=== PATIENT | male | born 1970 | race African-American/Black ===

== ENCOUNTER 2021-01-04 13:10 | Inpatient (IN) | payer OTHER ==
[2021-01-04 15:32] VITALS: BMI 26.2
[2021-01-04] MEDS ORDERED: chlordiazePOXIDE HCL 25 MG CAPSULE PO PRN (16:21)
[2021-01-04] MEDS ORDERED: MAG HYDROX/AL HYDROX/SIMETH 30 ML UNIT-DOSE CUP PO PRN (16:21)
[2021-01-04] MEDS ORDERED: ACETAMINOPHEN 325 MG TABLET (FP) PO PRN ×2 (16:21)
[2021-01-04] MEDS ORDERED: BISMUTH SUBSALICYLATE 524 MG/30 ML UD PO PRN (16:21)
[2021-01-04] MEDS ORDERED: ONDANSETRON *ODT* 4 MG TABLET SL PRN (16:21)
[2021-01-04] MEDS ORDERED: MAGNESIUM HYDROX 2400MG/30ML ORAL SUSPENSION 30 ML CUP PO PRN (16:21)
[2021-01-04] MEDS ORDERED: MAGNESIUM CITRATE 300 ML BOTTLE PO PRN (16:21)
[2021-01-04] MEDS ORDERED: MENTHOL/PHENOL 1 EACH UD MM PRN (16:21)
[2021-01-04] MEDS ORDERED: NICOTINE POLACRILEX 2 MG GUM BUC PRN (16:21)
[2021-01-04] MEDS ORDERED: METHOCARBAMOL 500 MG TABLET PO PRN (16:21)
[2021-01-04] MEDS ORDERED: IBUPROFEN 400 MG TABLET (FP) PO PRN (16:21)
[2021-01-04] MEDS: chlordiazePOXIDE HCL 25 MG CAPSULE PO SCH ×2 (18:02→22:31)
[2021-01-04] MEDS: hydrOXYzine PAMOATE 25 MG CAPSULE (FP) PO SCH ×2 (18:02→22:31)
[2021-01-04] MEDS: PRENATAL VITAMINS W/ FOLIC ACID TABLET (FP) PO SCH (18:10)
[2021-01-04] MEDS: NICOTINE 21 MG/24 HOURS TOPICAL PATCH TD SCH (18:10)
[2021-01-04] MEDS: THIAMINE HCL 100 MG TABLET (FP) PO SCH (22:30)
[2021-01-04] MEDS: MELATONIN 5 MG TABLETS PO SCH (22:30)
[2021-01-05] MEDS: chlordiazePOXIDE HCL 25 MG CAPSULE PO SCH ×4 (05:11→22:32)
[2021-01-05] MEDS: hydrOXYzine PAMOATE 25 MG CAPSULE (FP) PO SCH ×5 (05:11→22:31)
[2021-01-05] MEDS: NICOTINE 21 MG/24 HOURS TOPICAL PATCH TD SCH (10:18)
[2021-01-05] MEDS: PRENATAL VITAMINS W/ FOLIC ACID TABLET (FP) PO SCH (10:18)
[2021-01-05 11:01] LABS: HEMATOCRIT 39.3 % (35.4-49); HEMOGLOBIN 13.2 GM/dL (11.7-16.9); MCH 29.1 pg (25.7-33.7); MCHC 33.4 g/dl (32.0-35.9); MEAN CELL VOLUME 87.1 fl (80-96); MEAN PLT VOLUME 9.3 fl (7.5-11.1); PLATELET COUNT 246 K/MM3 (134-434); RBC 4.52 M/mm3 (4.00-5.60); RDW 14.2 % (11.9-15.9); WHITE BLOOD COUNT 6.8 K/mm3 (4.0-10.0)
[2021-01-05 11:09] LABS: CALCIUM 8.8 mg/dL (8.5-10.1)
[2021-01-05 11:10] LABS: ALBUMIN 3.4 g/dl (3.4-5.0); BLOOD UREA NITROGEN 16.3 mg/dL (7-18)
[2021-01-05 11:13] LABS: CREATININE 1.1 mg/dL (0.55-1.3)
[2021-01-05 11:15] LABS: BILIRUBIN,TOTAL 0.4 mg/dL (0.2-1); TOT PROT 6.3 g/dl (6.4-8.2)
[2021-01-05] MEDS ORDERED: COLLOIDAL OATMEAL 1 BAR EACH TP ONE (13:10)
[2021-01-05] MEDS: THIAMINE HCL 100 MG TABLET (FP) PO SCH (22:31)
[2021-01-05] MEDS: MELATONIN 5 MG TABLETS PO SCH (22:31)
[2021-01-06] MEDS ORDERED: chlordiazePOXIDE HCL 25 MG CAPSULE PO SCH (05:00)
[2021-01-06] MEDS: hydrOXYzine PAMOATE 25 MG CAPSULE (FP) PO SCH (05:58)
[2021-01-06 09:00] VITALS: BP 119/84; PULSE 93; TEMP 97.1
[2021-01-07] MEDS ORDERED: chlordiazePOXIDE HCL 10 MG CAPSULE PO PRN
[2021-01-07] MEDS ORDERED: chlordiazePOXIDE HCL 10 MG CAPSULE PO SCH (05:00)
[2021-01-08] MEDS ORDERED: chlordiazePOXIDE HCL 10 MG CAPSULE PO SCH (05:00)
[2021-01-09] MEDS ORDERED: chlordiazePOXIDE HCL 10 MG CAPSULE PO ONE (05:00)
== END 2021-01-06 10:00 | disposition left against medical advice (07) | DRG 770 ==
LOC: YASAS 13:10 → Y3N 15:55
PROVIDERS: ADMIT Allergy & Immunology; ATTEND Allergy & Immunology
PROC: HZ2ZZZZ Detoxification Services for Substance Abuse Treatment (ICD-10-PCS; principal; 2021-01-04)
DX: F10.230 Alcohol dependence with withdrawal, uncomplicated (principal); F14.20 Cocaine dependence, uncomplicated; F12.10 Cannabis abuse, uncomplicated; F17.210 Nicotine dependence, cigarettes, uncomplicated; F41.8 Other specified anxiety disorders; F32.9 Major depressive disorder, single episode, unspecified
CPT/HCPCS: 36415; 80053; 85027; 86593; 86780; C9803; U0003; U0005

== ENCOUNTER 2021-03-29 10:43 | Emergency (ER) | payer OTHER ==
[2021-03-29 11:14] VITALS: BP 118/85; PULSE 82; TEMP 97; BMI 29.7
== END 2021-03-29 13:11 | disposition home or self-care (01) ==
LOC: JER 10:43
DX: T40.2X1A Poisoning by other opioids, accidental (unintentional), initial encounter (principal)
CPT/HCPCS: 99281-25

== ENCOUNTER 2021-03-29 14:00 | Inpatient (IN) | payer OTHER ==
[2021-03-29 16:07] VITALS: BMI 24.4
[2021-03-29] MEDS ORDERED: diazePAM 5 MG TABLET PO PRN (19:35)
[2021-03-29] MEDS ORDERED: MENTHOL/PHENOL 1 EACH UD MM PRN (19:35)
[2021-03-29] MEDS ORDERED: ACETAMINOPHEN 325 MG TABLET (FP) PO PRN ×2 (19:35)
[2021-03-29] MEDS ORDERED: NICOTINE POLACRILEX 2 MG GUM BUC PRN (19:35)
[2021-03-29] MEDS ORDERED: MAG HYDROX/AL HYDROX/SIMETH 30 ML UNIT-DOSE CUP PO PRN (19:35)
[2021-03-29] MEDS ORDERED: ONDANSETRON *ODT* 4 MG TABLET SL PRN (19:35)
[2021-03-29] MEDS ORDERED: MAGNESIUM CITRATE 300 ML BOTTLE PO PRN (19:35)
[2021-03-29] MEDS ORDERED: MAGNESIUM HYDROX 2400MG/30ML ORAL SUSPENSION 30 ML CUP PO PRN (19:35)
[2021-03-29] MEDS: MELATONIN 5 MG TABLETS PO SCH (23:03)
[2021-03-29] MEDS: diazePAM 5 MG TABLET PO SCH (23:04)
[2021-03-29] MEDS: THIAMINE HCL 100 MG TABLET (FP) PO SCH (23:04)
[2021-03-30] MEDS: diazePAM 5 MG TABLET PO SCH ×4 (05:46→22:09)
[2021-03-30] MEDS: METHOCARBAMOL 500 MG TABLET PO PRN (05:48)
[2021-03-30] MEDS: NICOTINE 14 MG/24 HOURS TOPICAL PATCH TD SCH (10:36)
[2021-03-30] MEDS: PRENATAL VITAMINS W/ FOLIC ACID TABLET (FP) PO SCH (10:36)
[2021-03-30] MEDS ORDERED: MINERAL OIL/PETROLAT/WATER TOPICAL CREAM 454 GM JAR TP SCH (11:30)
[2021-03-30] MEDS ORDERED: COLLOIDAL OATMEAL 1 BAR EACH TP PRN (11:49)
[2021-03-30] MEDS: PETROLATUM, WHITE 30 GM TUBE TP SCH (13:17)
[2021-03-30 13:26] LABS: HEMATOCRIT 39.7 % (35.4-49); MCH 28.6 pg (25.7-33.7); MCHC 32.6 g/dl (32.0-35.9); MEAN CELL VOLUME 87.5 fl (80-96); MEAN PLT VOLUME 8.8 fl (7.5-11.1); PLATELET COUNT 306 10^3/uL (134-434); RBC 4.54 M/mm3 (4.00-5.60); RDW 15.1 % (11.9-15.9); WHITE BLOOD COUNT 9.8 K/mm3 (4.0-10.0)
[2021-03-30 13:38] LABS: BLOOD UREA NITROGEN 22.7 mg/dL (7-18); CALCIUM 9.1 mg/dL (8.5-10.1)
[2021-03-30 13:42] LABS: BILIRUBIN,TOTAL 0.4 mg/dL (0.2-1); TOT PROT 7.6 g/dl (6.4-8.2)
[2021-03-30] MEDS ORDERED: prednisoLONE ACETATE 1% OPHTH SUSP 5 ML BOTTLE OS SCH (17:00)
[2021-03-30] MEDS: prednisoLONE ACETATE 1% OPHTH SUSP 5 ML BOTTLE OU SCH (17:36)
[2021-03-30] MEDS: MINERAL OIL/PETROLAT/WATER TOPICAL CREAM 113 GM JAR TP SCH (22:09)
[2021-03-30] MEDS: MELATONIN 5 MG TABLETS PO SCH (22:10)
[2021-03-30] MEDS: APIXABAN 2.5 MG TABLET PO SCH (22:10)
[2021-03-30] MEDS: THIAMINE HCL 100 MG TABLET (FP) PO SCH (22:10)
[2021-03-31] MEDS: diazePAM 5 MG TABLET PO SCH ×3 (05:16→22:24)
[2021-03-31] MEDS: prednisoLONE ACETATE 1% OPHTH SUSP 5 ML BOTTLE OU SCH ×2 (07:55→18:01)
[2021-03-31] MEDS: APIXABAN 2.5 MG TABLET PO SCH ×2 (10:12→22:25)
[2021-03-31] MEDS: MINERAL OIL/PETROLAT/WATER TOPICAL CREAM 113 GM JAR TP SCH ×2 (10:13→22:25)
[2021-03-31] MEDS: NICOTINE 14 MG/24 HOURS TOPICAL PATCH TD SCH (10:13)
[2021-03-31] MEDS: PRENATAL VITAMINS W/ FOLIC ACID TABLET (FP) PO SCH (10:13)
[2021-03-31] MEDS: PETROLATUM, WHITE 30 GM TUBE TP SCH (10:13)
[2021-03-31] MEDS ORDERED: prednisoLONE ACETATE 1% OPHTH SUSP 5 ML BOTTLE OU ONE (15:34)
[2021-03-31] MEDS ORDERED: diazePAM 5 MG TABLET PO ONE (15:53)
[2021-03-31] MEDS: THIAMINE HCL 100 MG TABLET (FP) PO SCH (22:24)
[2021-03-31] MEDS: MELATONIN 5 MG TABLETS PO SCH (22:24)
[2021-03-31] MEDS: VITAMINS A AND D TOPICAL OINTMENT 60 GM TUBE TP PRN (22:38)
[2021-04-01] MEDS: diazePAM 5 MG TABLET PO SCH ×2 (06:58→17:28)
[2021-04-01] MEDS: prednisoLONE ACETATE 1% OPHTH SUSP 5 ML BOTTLE OU SCH ×2 (07:45→17:30)
[2021-04-01] MEDS: NICOTINE 14 MG/24 HOURS TOPICAL PATCH TD SCH (10:29)
[2021-04-01] MEDS: MINERAL OIL/PETROLAT/WATER TOPICAL CREAM 113 GM JAR TP SCH ×2 (10:29→23:01)
[2021-04-01] MEDS: APIXABAN 2.5 MG TABLET PO SCH ×2 (10:29→23:01)
[2021-04-01] MEDS: VITAMINS A AND D TOPICAL OINTMENT 60 GM TUBE TP PRN (10:30)
[2021-04-01] MEDS: PRENATAL VITAMINS W/ FOLIC ACID TABLET (FP) PO SCH (10:30)
[2021-04-01] MEDS: PETROLATUM, WHITE 30 GM TUBE TP SCH (10:30)
[2021-04-01] MEDS: ARTIFICIAL TEARS (POLYVINYL ALCOHOL) OPTH DROPS OU PRN ×2 (17:31→23:00)
[2021-04-01] MEDS: THIAMINE HCL 100 MG TABLET (FP) PO SCH (23:00)
[2021-04-01] MEDS: MELATONIN 5 MG TABLETS PO SCH (23:01)
[2021-04-01] MEDS: METHOCARBAMOL 500 MG TABLET PO PRN (23:02)
[2021-04-02] MEDS ORDERED: diazePAM 5 MG TABLET PO ONE (06:00)
[2021-04-02] MEDS: ARTIFICIAL TEARS (POLYVINYL ALCOHOL) OPTH DROPS OU PRN (06:53)
[2021-04-02] MEDS: prednisoLONE ACETATE 1% OPHTH SUSP 5 ML BOTTLE OU SCH (08:36)
[2021-04-02] MEDS: MINERAL OIL/PETROLAT/WATER TOPICAL CREAM 113 GM JAR TP SCH (10:26)
[2021-04-02] MEDS: APIXABAN 2.5 MG TABLET PO SCH (10:26)
[2021-04-02] MEDS: PETROLATUM, WHITE 30 GM TUBE TP SCH (10:27)
[2021-04-02] MEDS: NICOTINE 14 MG/24 HOURS TOPICAL PATCH TD SCH (10:27)
[2021-04-02] MEDS: PRENATAL VITAMINS W/ FOLIC ACID TABLET (FP) PO SCH (10:27)
[2021-04-02 12:03] VITALS: BP 136/90; PULSE 98; TEMP 97.1
== END 2021-04-02 10:05 | disposition other institution (70) | DRG 773 ==
LOC: YASAS 14:00 → Y3N 21:45
PROVIDERS: ADMIT Allergy & Immunology; ATTEND Allergy & Immunology
PROC: HZ2ZZZZ Detoxification Services for Substance Abuse Treatment (ICD-10-PCS; principal; 2021-03-29)
DX: F11.23 Opioid dependence with withdrawal (principal); F10.230 Alcohol dependence with withdrawal, uncomplicated; F14.20 Cocaine dependence, uncomplicated; F12.20 Cannabis dependence, uncomplicated; F17.210 Nicotine dependence, cigarettes, uncomplicated; F41.9 Anxiety disorder, unspecified; A53.0 Latent syphilis, unspecified as early or late; H54.62 Unqualified visual loss, left eye, normal vision right eye; L51.1 Stevens-Johnson syndrome; R79.89 Other specified abnormal findings of blood chemistry; Z86.718 Personal history of other venous thrombosis and embolism; Z79.01 Long term (current) use of anticoagulants; Z88.6 Allergy status to analgesic agent; Z88.8 Allergy status to other drugs, medicaments and biological substances
CPT/HCPCS: 36415; 80053; 85027; 86593; 86780; C9803; U0003; U0005

== ENCOUNTER 2021-04-10 15:47 | Inpatient (IN) | payer OTHER ==
[2021-04-10 16:29] VITALS: BMI 24.4
[2021-04-10] MEDS ORDERED: MAGNESIUM CITRATE 300 ML BOTTLE PO PRN (19:27)
[2021-04-10] MEDS ORDERED: MAGNESIUM HYDROX 2400MG/30ML ORAL SUSPENSION 30 ML CUP PO PRN (19:27)
[2021-04-10] MEDS ORDERED: P-EPHED 60MG/TRIPROLIDI 2.5MG TABLET PO PRN (19:27)
[2021-04-10] MEDS ORDERED: MAG HYDROX/AL HYDROX/SIMETH 30 ML UNIT-DOSE CUP PO PRN (19:27)
[2021-04-10] MEDS ORDERED: guaiFENesin 200 MG/10 ML 10 ML UNIT-DOSE CUPS PO PRN (19:27)
[2021-04-10] MEDS ORDERED: ACETAMINOPHEN 325 MG TABLET (FP) PO PRN (19:27)
[2021-04-10] MEDS ORDERED: LOPERAMIDE HCL 2 MG CAPSULE PO PRN (19:27)
[2021-04-10] MEDS ORDERED: NICOTINE POLACRILEX 2 MG GUM BC PRN (19:27)
[2021-04-10] MEDS: hydrOXYzine PAMOATE 25 MG CAPSULE (FP) PO SCH (22:53)
[2021-04-10] MEDS: THIAMINE HCL 100 MG TABLET (FP) PO SCH (22:53)
[2021-04-10] MEDS: MELATONIN 5 MG TABLETS PO SCH (22:53)
[2021-04-11] MEDS: hydrOXYzine PAMOATE 25 MG CAPSULE (FP) PO SCH ×5 (06:47→21:40)
[2021-04-11] MEDS: PRENATAL VITAMINS W/ FOLIC ACID TABLET (FP) PO SCH (10:26)
[2021-04-11] MEDS: NICOTINE 14 MG/24 HOURS TOPICAL PATCH TD SCH (10:27)
[2021-04-11 10:36] LABS: HEMATOCRIT 41.5 % (35.4-49); HEMOGLOBIN 13.8 GM/dL (11.7-16.9); MCH 28.9 pg (25.7-33.7); MCHC 33.3 g/dl (32.0-35.9); MEAN CELL VOLUME 86.6 fl (80-96); MEAN PLT VOLUME 8.6 fl (7.5-11.1); PLATELET COUNT 284 10^3/uL (134-434); WHITE BLOOD COUNT 8.7 K/mm3 (4.0-10.0)
[2021-04-11 10:38] LABS: BLOOD UREA NITROGEN 18.3 mg/dL (7-18)
[2021-04-11 10:41] LABS: CALCIUM 9.3 mg/dL (8.5-10.1); CREATININE 1.1 mg/dL (0.55-1.3)
[2021-04-11 10:43] LABS: BILIRUBIN,TOTAL 0.3 mg/dL (0.2-1); TOT PROT 7.8 g/dl (6.4-8.2)
[2021-04-11] MEDS: prednisoLONE ACETATE 1% OPHTH SUSP 5 ML BOTTLE OU SCH ×2 (12:31→21:21)
[2021-04-11] MEDS: ARTIFICIAL TEARS (POLYVINYL ALCOHOL) OPTH DROPS OD SCH ×3 (14:58→21:19)
[2021-04-11] MEDS ORDERED: PT OWN MED DRAWER 7, Y5N ONE ×4 (15:02→15:57)
[2021-04-11] MEDS: [UNRECOGNIZED DRUG - OTHER] TP SCH (15:47)
[2021-04-11] MEDS ORDERED: MINERAL OIL OU SCH (16:00)
[2021-04-11] MEDS ORDERED: [UNRECOGNIZED DRUG - OTHER] OU SCH (16:00)
[2021-04-11] MEDS ORDERED: PETROLATUM WHITE OU SCH (16:00)
[2021-04-11] MEDS: VITAMINS A AND D TOPICAL OINTMENT 60 GM TUBE TP SCH (17:55)
[2021-04-11] MEDS: MINERAL OIL/PETROLATUM,WHITE 3.5 GM TUBE OU SCH (21:18)
[2021-04-11] MEDS: MINERAL OIL/PET HY-PHL TOPICAL OINTMENT 454 GM JAR TP SCH (21:20)
[2021-04-11] MEDS: MINERAL OIL/PETROLAT/WATER TOPICAL CREAM 113 GM JAR TP PRN (21:20)
[2021-04-11] MEDS: THIAMINE HCL 100 MG TABLET (FP) PO SCH (21:21)
[2021-04-11] MEDS: MELATONIN 5 MG TABLETS PO SCH (21:21)
[2021-04-11] MEDS: APIXABAN 2.5 MG TABLET PO SCH (21:21)
[2021-04-11 23:00] LABS: URINE APPEARANCE CLEAR; URINE BILIRUBIN NEGATIVE (NEGATIVE); URINE COLOR YELLOW; URINE GLUCOSE (UA) NEGATIVE (NEGATIVE); URINE KETONE NEGATIVE (NEGATIVE); URINE LEUK ESTERASE NEGATIVE (NEGATIVE); URINE NITRITE NEGATIVE (NEGATIVE); URINE PROTEIN NEGATIVE (NEGATIVE); URINE UROBILINOGEN 0.2 mg/dL (0.2-1.0)
[2021-04-12] MEDS: VITAMINS A AND D TOPICAL OINTMENT 60 GM TUBE TP SCH ×4 (01:10→17:46)
[2021-04-12] MEDS: MINERAL OIL/PETROLATUM,WHITE 3.5 GM TUBE OU SCH ×3 (06:36→21:28)
[2021-04-12] MEDS: hydrOXYzine PAMOATE 25 MG CAPSULE (FP) PO SCH ×5 (06:37→21:28)
[2021-04-12] MEDS: PRENATAL VITAMINS W/ FOLIC ACID TABLET (FP) PO SCH (09:53)
[2021-04-12] MEDS: ARTIFICIAL TEARS (POLYVINYL ALCOHOL) OPTH DROPS OD SCH ×4 (09:53→21:30)
[2021-04-12] MEDS: NICOTINE 14 MG/24 HOURS TOPICAL PATCH TD SCH (09:53)
[2021-04-12] MEDS: APIXABAN 2.5 MG TABLET PO SCH ×2 (09:53→21:28)
[2021-04-12] MEDS: MINERAL OIL/PETROLAT/WATER TOPICAL CREAM 113 GM JAR TP PRN ×3 (09:54→10:22)
[2021-04-12] MEDS: [UNRECOGNIZED DRUG - OTHER] TP SCH (09:55)
[2021-04-12] MEDS: MINERAL OIL/PET HY-PHL TOPICAL OINTMENT 454 GM JAR TP SCH ×2 (10:22→21:30)
[2021-04-12] MEDS: COLLOIDAL OATMEAL 1 BAR EACH TP PRN (20:59)
[2021-04-12] MEDS: MELATONIN 5 MG TABLETS PO SCH (21:29)
[2021-04-12] MEDS: THIAMINE HCL 100 MG TABLET (FP) PO SCH (21:29)
[2021-04-12] MEDS: prednisoLONE ACETATE 1% OPHTH SUSP 5 ML BOTTLE OU SCH (21:30)
[2021-04-13] MEDS: VITAMINS A AND D TOPICAL OINTMENT 60 GM TUBE TP SCH ×5 (00:18→23:45)
[2021-04-13] MEDS: hydrOXYzine PAMOATE 25 MG CAPSULE (FP) PO SCH ×5 (06:29→21:28)
[2021-04-13] MEDS: MINERAL OIL/PETROLATUM,WHITE 3.5 GM TUBE OU SCH ×3 (06:29→21:17)
[2021-04-13] MEDS: prednisoLONE ACETATE 1% OPHTH SUSP 5 ML BOTTLE OU SCH ×2 (06:29→21:16)
[2021-04-13] MEDS: PRENATAL VITAMINS W/ FOLIC ACID TABLET (FP) PO SCH (10:07)
[2021-04-13] MEDS: NICOTINE 14 MG/24 HOURS TOPICAL PATCH TD SCH (10:08)
[2021-04-13] MEDS: APIXABAN 2.5 MG TABLET PO SCH ×2 (10:08→21:16)
[2021-04-13] MEDS: ARTIFICIAL TEARS (POLYVINYL ALCOHOL) OPTH DROPS OD SCH ×4 (10:08→21:16)
[2021-04-13] MEDS: MINERAL OIL/PETROLAT/WATER TOPICAL CREAM 113 GM JAR TP PRN (10:09)
[2021-04-13] MEDS: MINERAL OIL/PET HY-PHL TOPICAL OINTMENT 454 GM JAR TP SCH ×2 (10:11→21:17)
[2021-04-13] MEDS: [UNRECOGNIZED DRUG - OTHER] TP SCH (10:11)
[2021-04-13] MEDS ORDERED: PT OWN MED DRAWER 7, Y5N ONE ×3 (10:12→14:24)
[2021-04-13] MEDS: MELATONIN 5 MG TABLETS PO SCH (21:15)
[2021-04-13] MEDS: THIAMINE HCL 100 MG TABLET (FP) PO SCH (21:18)
[2021-04-14] MEDS: MINERAL OIL/PETROLATUM,WHITE 3.5 GM TUBE OU SCH ×3 (07:18→21:13)
[2021-04-14] MEDS: prednisoLONE ACETATE 1% OPHTH SUSP 5 ML BOTTLE OU SCH ×2 (07:18→21:14)
[2021-04-14] MEDS: VITAMINS A AND D TOPICAL OINTMENT 60 GM TUBE TP SCH ×3 (07:19→18:25)
[2021-04-14] MEDS: hydrOXYzine PAMOATE 25 MG CAPSULE (FP) PO SCH ×5 (07:19→21:14)
[2021-04-14] MEDS: PRENATAL VITAMINS W/ FOLIC ACID TABLET (FP) PO SCH (09:58)
[2021-04-14] MEDS: APIXABAN 2.5 MG TABLET PO SCH ×2 (09:59→21:09)
[2021-04-14] MEDS: ARTIFICIAL TEARS (POLYVINYL ALCOHOL) OPTH DROPS OD SCH ×4 (09:59→21:13)
[2021-04-14] MEDS: [UNRECOGNIZED DRUG - OTHER] TP SCH (10:00)
[2021-04-14] MEDS: MINERAL OIL/PETROLAT/WATER TOPICAL CREAM 113 GM JAR TP PRN (10:00)
[2021-04-14] MEDS: NICOTINE 14 MG/24 HOURS TOPICAL PATCH TD SCH (10:02)
[2021-04-14] MEDS: MINERAL OIL/PET HY-PHL TOPICAL OINTMENT 454 GM JAR TP SCH ×2 (10:02→21:13)
[2021-04-14] MEDS ORDERED: PT OWN MED DRAWER 7, Y5N ONE ×4 (10:04→23:24)
[2021-04-14] MEDS: THIAMINE HCL 100 MG TABLET (FP) PO SCH (21:14)
[2021-04-14] MEDS: MELATONIN 5 MG TABLETS PO SCH (21:14)
[2021-04-15] MEDS: VITAMINS A AND D TOPICAL OINTMENT 60 GM TUBE TP SCH ×4 (00:01→18:04)
[2021-04-15] MEDS ORDERED: PT OWN MED DRAWER 7, Y5N ONE ×2 (03:12→09:00)
[2021-04-15] MEDS: MINERAL OIL/PETROLATUM,WHITE 3.5 GM TUBE OU SCH ×4 (06:43→21:30)
[2021-04-15] MEDS: hydrOXYzine PAMOATE 25 MG CAPSULE (FP) PO SCH ×5 (06:43→21:29)
[2021-04-15] MEDS: prednisoLONE ACETATE 1% OPHTH SUSP 5 ML BOTTLE OU SCH ×3 (06:43→21:29)
[2021-04-15] MEDS: PRENATAL VITAMINS W/ FOLIC ACID TABLET (FP) PO SCH (09:45)
[2021-04-15] MEDS: NICOTINE 14 MG/24 HOURS TOPICAL PATCH TD SCH (09:46)
[2021-04-15] MEDS: ARTIFICIAL TEARS (POLYVINYL ALCOHOL) OPTH DROPS OD SCH ×4 (09:46→21:30)
[2021-04-15] MEDS: MINERAL OIL/PET HY-PHL TOPICAL OINTMENT 454 GM JAR TP SCH ×2 (09:46→21:30)
[2021-04-15] MEDS: APIXABAN 2.5 MG TABLET PO SCH ×2 (09:46→21:30)
[2021-04-15] MEDS: [UNRECOGNIZED DRUG - OTHER] TP SCH (09:46)
[2021-04-15] MEDS: MELATONIN 5 MG TABLETS PO SCH (21:28)
[2021-04-15] MEDS: THIAMINE HCL 100 MG TABLET (FP) PO SCH (21:29)
[2021-04-16] MEDS: VITAMINS A AND D TOPICAL OINTMENT 60 GM TUBE TP SCH ×4 (01:11→17:58)
[2021-04-16] MEDS: prednisoLONE ACETATE 1% OPHTH SUSP 5 ML BOTTLE OU SCH ×2 (06:10→21:14)
[2021-04-16] MEDS: MINERAL OIL/PETROLATUM,WHITE 3.5 GM TUBE OU SCH ×3 (06:10→21:15)
[2021-04-16] MEDS: hydrOXYzine PAMOATE 25 MG CAPSULE (FP) PO SCH ×5 (06:10→21:14)
[2021-04-16] MEDS: PRENATAL VITAMINS W/ FOLIC ACID TABLET (FP) PO SCH (10:00)
[2021-04-16] MEDS: APIXABAN 2.5 MG TABLET PO SCH ×2 (10:00→21:13)
[2021-04-16] MEDS: MINERAL OIL/PET HY-PHL TOPICAL OINTMENT 454 GM JAR TP SCH ×2 (10:02→21:15)
[2021-04-16] MEDS: ARTIFICIAL TEARS (POLYVINYL ALCOHOL) OPTH DROPS OD SCH ×4 (10:02→21:15)
[2021-04-16] MEDS: [UNRECOGNIZED DRUG - OTHER] TP SCH (10:02)
[2021-04-16] MEDS: NICOTINE 14 MG/24 HOURS TOPICAL PATCH TD SCH (10:22)
[2021-04-16] MEDS: COLLOIDAL OATMEAL 1 BAR EACH TP PRN (17:57)
[2021-04-16] MEDS: MELATONIN 5 MG TABLETS PO SCH (21:14)
[2021-04-16] MEDS: THIAMINE HCL 100 MG TABLET (FP) PO SCH (21:14)
[2021-04-17] MEDS: VITAMINS A AND D TOPICAL OINTMENT 60 GM TUBE TP SCH ×2 (00:15→06:15)
[2021-04-17] MEDS: prednisoLONE ACETATE 1% OPHTH SUSP 5 ML BOTTLE OU SCH (06:15)
[2021-04-17] MEDS: hydrOXYzine PAMOATE 25 MG CAPSULE (FP) PO SCH (06:15)
[2021-04-17] MEDS: MINERAL OIL/PETROLATUM,WHITE 3.5 GM TUBE OU SCH (06:15)
[2021-04-17 06:50] VITALS: BP 138/77; PULSE 78; TEMP 97
[2021-04-17] MEDS ORDERED: PT OWN MED DRAWER 7, Y5N ONE (08:53)
[2021-04-17] MEDS: ARTIFICIAL TEARS (POLYVINYL ALCOHOL) OPTH DROPS OD SCH (09:00)
[2021-04-17] MEDS: MINERAL OIL/PET HY-PHL TOPICAL OINTMENT 454 GM JAR TP SCH (09:00)
[2021-04-17] MEDS: APIXABAN 2.5 MG TABLET PO SCH (09:00)
[2021-04-17] MEDS: [UNRECOGNIZED DRUG - OTHER] TP SCH (09:01)
[2021-04-17] MEDS: PRENATAL VITAMINS W/ FOLIC ACID TABLET (FP) PO SCH (09:01)
[2021-04-17] MEDS: NICOTINE 14 MG/24 HOURS TOPICAL PATCH TD SCH (09:01)
== END 2021-04-17 09:12 | disposition home or self-care (01) | DRG 772 ==
LOC: YASAS 15:47 → Y3W 21:33
PROVIDERS: ADMIT Allergy & Immunology; ATTEND Allergy & Immunology
PROC: HZ42ZZZ Group Counseling for Substance Abuse Treatment, Cognitive-Behavioral (ICD-10-PCS; principal; 2021-04-10)
DX: F10.20 Alcohol dependence, uncomplicated (principal); F14.20 Cocaine dependence, uncomplicated; F12.20 Cannabis dependence, uncomplicated; F17.210 Nicotine dependence, cigarettes, uncomplicated; F41.9 Anxiety disorder, unspecified; F32.9 Major depressive disorder, single episode, unspecified; R00.0 Tachycardia, unspecified; L51.3 Stevens-Johnson syndrome-toxic epidermal necrolysis overlap syndrome; Z88.8 Allergy status to other drugs, medicaments and biological substances
CPT/HCPCS: 36415; 80053; 81003; 85027; C9803; U0003; U0005